=== PATIENT | female | born 1975 | race African-American/Black ===

== ENCOUNTER 2016-06-23 13:51 | Emergency (ER) | payer MEDICAID ==
[~2016-06-23] VITALS: Ht 162.6 cm; Wt 60.0 kg
[~2016-06-23 13:51] MED LIST: PROIN3
[2016-06-23 13:53] VITALS: BP 116/76
[2016-06-23] MEDS ORDERED: AMMONIA INHALATION 1EA INH ONE (14:03)
== END 2016-06-23 18:19 | disposition left against medical advice (07) ==
LOC: ER 15:16
DX: Z53.21 Procedure and treatment not carried out due to patient leaving prior to being seen by health care provider (principal)